=== PATIENT | male | born 1935 | race Caucasian/White ===

== ENCOUNTER → 2017-01-20 | Outpatient (CLI) | payer MEDICARE, OTHER ==
[~2017-01-20] MED LIST: ALBUTEROL0.83 MG/ML IH; ASPIRIN E.C. 8181 MG PO; ATROVENT I0.2 MG/1 M IH; BREO IH; DYAZIDE 25 MG-31 CAP PO; EPA FISH OIL1000 MG PO; FIBRE1 TAB PO; HUMALOG100 U/ML SC; JANTOVEN5 MG PO; PEPCID 20MG TAB20 MG PO; PROVENTIL0.09 MG/A1 IH; TPN ELECTROLYT100 ML IV; VITAMIN D31000 I1 PO; ZOFRAN 4MG T4 MG/TAB PO
== END ==
LOC: COL.LAB 07:48
DX: Z01.89 Encounter for other specified special examinations (principal)

== ENCOUNTER 2022-01-29 12:14 | Emergency (ER) | payer MEDICARE, OTHER ==
[2022-01-29 12:48] VITALS: TEMP 98.4
[2022-01-29 13:24] LABS: BASO % 0.6 % (0.0-2.0); EOS # 0.1 K/mm3 (0.0-0.7); EOS % 1.4 % (0.0-4.0); GRAN # 4.6 K/mm3 (1.4-6.5); GRAN % 72.3 % (42.2-75.2); HEMATOCRIT 40.1 % (42.0-52.0); HEMOGLOBIN 13.3 g/dl (13.5-18.0); LYMPH # 1.1 K/mm3 (1.2-3.4); LYMPH % 16.6 % (20.0-51.0); MEAN CELL VOLUME 92 fl (80.0-100.0); MEAN CORPUSCULAR HEMOGLOBIN 31 pg (27-31); MEAN CORPUSCULAR HGB CONC 33 g/dl (33.0-37.0); MEAN PLATELET VOLUME 9.3 fl (7.4-10.4); MONO # 0.6 K/mm3 (0.1-0.6); MONO % 8.9 % (1.7-9.3); PLATELET COUNT 147 K/mm3 (130-400); RED BLOOD COUNT 4.35 M/mm3 (4.20-5.60); REDCELL DISTRIBUTION WIDTH-CV 13.3 % (11.5-14.5)
[2022-01-29 13:34] LABS: ALBUMIN 3.3 gm/dL (3.4-4.8); BILIRUBIN,DIRECT 0.7 mg/dL (0.0-0.5); BILIRUBIN,TOTAL 2.3 mg/dL (0.2-1.2); CREATININE, serum 1.15 mg/dL (0.72-1.25); POTASSIUM 3.9 mmol/L (3.5-4.5); TOTAL PROTEIN 5.8 gm/dL (6.2-8.1)
[2022-01-29 17:15] VITALS: BP 160/90; PULSE 83
== END 2022-01-29 17:15 | disposition home or self-care (01) ==
LOC: COL.ER 12:14
PROVIDERS: Emergency Medicine
DX: Q44.1 Other congenital malformations of gallbladder (principal); Z98.890 Other specified postprocedural states